=== PATIENT | female | born 1970 | race Caucasian/White ===

== ENCOUNTER → 2016-12-25 | Outpatient (CLI) | payer BC ==
--- NOTE | 2016-12-29 07:07 | MM ---
Reason for exam: screening (asymptomatic). Last mammogram was performed 1 year ago. History: Patient is postmenopausal and has history of other cancer at age 27. Family history of breast cancer in maternal aunt at age 70. Took hormonal contraceptives for 17 years beginning at age 19. Physical Findings: Nurse did not find any significant physical abnormalities on exam. MG Screening Mammo w CAD Bilateral CC and MLO view(s) were taken. Prior study comparison: December 27, 2015, bilateral MG screening mammo w CAD. There are scattered fibroglandular densities. No significant changes when compared with prior studies. ASSESSMENT: Benign, BI-RAD 2 RECOMMENDATION: Routine screening mammogram of both breasts in 1 year.
== END | disposition home or self-care (01) ==
LOC: RADMAMWWP 12:38
PROVIDERS: ATTEND Obstetrics & Gynecology
DX: Z12.31 Encounter for screening mammogram for malignant neoplasm of breast (principal)

== ENCOUNTER → 2017-01-07 | Outpatient (CLI) | payer BC ==
--- NOTE | 2017-01-07 16:14 | ECHOS ---
DATE OF SERVICE: 01/07/2017 AGE: 46Y SEX: F HT: 63" WT: 190 lbs. Protocol [place]: Others: Stress echo Stage: 3 Dur. of Exercise: 9 min *Heart Rate Blood Pressure *Rest: 79 Rest: 109/54 * *Max. Achieved: 159 Maximum BP: 165/70 85% PMHR: 149 100% PMHR: 175 *METS: 10.5 INDICATIONS: Chest pain. MEDICATIONS: Vitamin D, Synthroid. Patient was exercised for a total period of 9 minutes. Peak heart rate of 159 was achieved. Maximum blood pressure of 165/70 mmHg was noted. Resting EKG shows normal sinus rhythm with normal NC interval and QRS duration and nonspecific ST-T changes. During exercise, J-point depression with upsloping ST segments are noted which are not diagnostic of ischemia. The baseline echocardiographic images reveal a normal left ventricular chamber size with normal left ventricular systolic function. In the immediate post-exercise period, normal increase in the wall thickness and contractility is noted. FINAL IMPRESSION: This stress echocardiographic study is negative for stress-induced ischemia. EKG portion of the stress test is not suggestive of ischemia. Patient's exercise tolerance is normal.
== END | disposition home or self-care (01) ==
LOC: RADNMMAIN 09:04
PROVIDERS: ATTEND Family Medicine
DX: R07.89 Other chest pain (principal)
CPT/HCPCS: 93017; 93350

== ENCOUNTER → 2017-02-02 | Outpatient (CLI) | payer BC ==
--- NOTE | 2017-02-02 08:53 | FL ---
EXAMINATION TYPE: FL UGI DATE OF EXAM: 02/02/2017 8:35 AM COMPARISON: NONE HISTORY: Heartburn TECHNIQUE: A double contrast UGI study is performed. FINDINGS: Time Study Engineer image of the abdomen shows no gross abnormality. The esophagus shows normal motility and emptying into the stomach. Tiny sliding hiatal hernia is seen . No gastroesophageal reflux. There is mild fold thickening of the esophagus correlate for esophagiti s. The stomach shows normal distensibility, peristalsis, and mucosal folds. No evidence of any mass or ulcer disease. No significant gastroesophageal reflux was seen during real time performance of this study. The duodenal bulb, sweep, and proximal small bowel loops are unremarkable. IMPRESSION: 1. Mild fold thickening of distal esophagus correlate for mild esophagitis. Consider direct visualiza tion.
== END ==
LOC: RADFLMAIN 07:55
PROVIDERS: ATTEND Family Medicine
DX: R47.02 Dysphasia (principal)
CPT/HCPCS: 74240

== ENCOUNTER → 2017-12-30 | Outpatient (CLI) | payer BC ==
--- NOTE | 2017-12-31 13:22 | MM ---
Reason for exam: screening (asymptomatic). Last mammogram was performed 1 year ago. History: Patient is postmenopausal and has history of other cancer at age 27. Family history of breast cancer in maternal aunt at age 70. Took hormonal contraceptives for 17 years beginning at age 19. Physical Findings: A clinical breast exam by your physician is recommended on an annual basis and results should be correlated with mammographic findings. MG Screening Mammo w CAD Bilateral CC and MLO view(s) were taken. Prior study comparison: December 25, 2016, bilateral MG screening mammo w CAD. December 27, 2015, bilateral MG screening mammo w CAD. The breast tissue is heterogeneously dense. This may lower the sensitivity of mammography. Focal asymmetry upper outer right breast 7.9cm from nipple. This finding is changed when compared with previous exams. ASSESSMENT: Incomplete: need additional imaging evaluation, BI-RAD 0 RECOMMENDATION: Special view mammogram of the right breast. If lesion persists on supplemental views, image directed ultrasound is recommended. [facility] will attempt to contact patient to return for supplemental views and ultrasound if indicated.
== END | disposition home or self-care (01) ==
LOC: RADMAMWWP 11:55
PROVIDERS: ATTEND Obstetrics & Gynecology
DX: Z12.31 Encounter for screening mammogram for malignant neoplasm of breast (principal)
CPT/HCPCS: 77067

== ENCOUNTER → 2018-01-07 | Outpatient (CLI) | payer BC ==
--- NOTE | 2018-01-07 09:54 | MM ---
Reason for exam: additional evaluation requested from abnormal screening. Last mammogram was performed less than 1 month ago. History: Patient is postmenopausal and has history of other cancer at age 27. Family history of breast cancer in maternal aunt at age 70. Took hormonal contraceptives for 17 years beginning at age 19. Physical Findings: Nurse did not find any significant physical abnormalities on exam. MG Work Up Mamm w CAD RT Spot compression CC, spot compression MLO, and LM view(s) were taken of the right breast. Prior study comparison: December 30, 2017, bilateral MG screening mammo w CAD. December 25, 2016, bilateral MG screening mammo w CAD. There are scattered fibroglandular densities. The questioned focal asymmetry disperses on additional views. No significant new findings when compared with previous films. These results were verbally communicated with the patient and result sheet given to the patient on 01/07/18. ASSESSMENT: Negative, BI-RAD 1 RECOMMENDATION: Return to routine screening mammogram schedule for both breasts.
== END | disposition home or self-care (01) ==
LOC: RADMAMWWP 09:04
PROVIDERS: ATTEND Obstetrics & Gynecology
DX: R92.8 Other abnormal and inconclusive findings on diagnostic imaging of breast (principal)
CPT/HCPCS: 77065

== ENCOUNTER → 2019-01-18 | Outpatient (CLI) | payer BC ==
--- NOTE | 2019-01-20 09:36 | MM ---
Reason for exam: screening (asymptomatic). Last mammogram was performed 1 year ago. History: Patient is postmenopausal and has history of other cancer at age 27. Family history of breast cancer in maternal aunt at age 70. Took hormonal contraceptives for 17 years beginning at age 19. Physical Findings: A clinical breast exam by your physician is recommended on an annual basis and results should be correlated with mammographic findings. MG Screening Mammo w CAD Bilateral CC and MLO view(s) were taken. Prior study comparison: January 07, 2018, right breast MG work up mamm w CAD RT. December 30, 2017, bilateral MG screening mammo w CAD. There are scattered fibroglandular densities. No significant changes when compared with prior studies. ASSESSMENT: Benign, BI-RAD 2 RECOMMENDATION: Routine screening mammogram of both breasts in 1 year.
== END | disposition home or self-care (01) ==
LOC: RADMAMWWP 13:52
PROVIDERS: ATTEND Obstetrics & Gynecology
DX: Z12.31 Encounter for screening mammogram for malignant neoplasm of breast (principal)
CPT/HCPCS: 77067

== ENCOUNTER 2019-02-18 08:42 | Day surgery (SDC) | payer BC ==
[2019-02-16 12:37] VITALS: BMI 32.8
[~2019-02-18 08:42] MED LIST: LACTATED RINGERS 1,000 ML IV SCH; LIDOCAINE 1% 20 ML VIAL (10MG/ML) FOR IV START INTRADERMA PRN
[2019-02-18 09:08] VITALS: TEMP 97.6
[2019-02-18] MEDS ORDERED: ONDANSETRON 4 MG/2 ML VIAL IVP ONE (09:20)
[2019-02-18] MEDS ORDERED: SCOPOLAMINE 1.5MG/72HR PATCH TRANSDERM ONE (09:20)
[2019-02-18] MEDS ORDERED: PROPOFOL 10 MG/ML 20 ML VIAL IV ONE (09:46)
[2019-02-18] MEDS ORDERED: fentaNYL (PF) 50 MCG/ML 2 ML AMP ONE (09:46)
[2019-02-18] MEDS ORDERED: MIDAZOLAM 2 MG/2 ML VIAL ONE (09:46)
--- NOTE | 2019-02-18 09:56 | P.PCN ---
Date of Procedure: 02/18/19 Procedure(s) Performed: BRIEF HISTORY: Patient is a 48-year-old, pleasant, white female, scheduled for an upper endoscopy as a part of evaluation of long-standing history of GERD for the last 3 years duration. She also has been complaint of left upper quadrant abdominal pain for the same duration. She is been on Zantac 150 milligrams twice daily with improvement in her heartburn symptoms. However she takes Motrin for the left upper quadrant abdominal pain... PROCEDURE PERFORMED: Esophagogastroduodenoscopy with biopsy. PREOPERATIVE DIAGNOSIS: Long-standing history of GERD. IV sedation per anesthesia. PROCEDURE: After informed consent was obtained, the patient was brought into the endoscopy unit. IV sedation was administered by Anesthesia under continuous monitoring. Initially the Olympus GIF-140 video endoscope was inserted into the mouth. Esophagus intubated without any difficulty. It was gradually advanced into the stomach and duodenum and carefully examined. The bulb and the second part of the duodenum appeared normal. The scope at this time was withdrawn to the stomach, adequately insufflated with air, and upon careful examination, mucosa of the antrum, body, cardia and the fundus appeared normal. The scope was then withdrawn into the esophagus. The GE junction was located at 39 cm from the incisors. There was a small hiatal hernia noted. The mucosal folds in the mid and distal esophagus appeared thickened, with longitudinal ridges and furrows suspicious for eosinophilic esophagitis and multiple biopsies were done from this area. The rest of the esophagus appeared normal thee patient tolerated the procedure well. IMPRESSION: 1. Mild antral gastritis. 2. Small hiatal hernia. 3. Thickened esophageal folds involving the mid and distal esophagus with longitudinal ridges and follow suspicious for eosinophilic esophagitis status post multiple biopsies. RECOMMENDATIONS: The findings of this examination were discussed with the patient as well as a family. She was advised to follow with the biopsy results. She'll be seen in office in one to 2 weeks. In the meantime she'll continue with Zantac 150 milligrams twice daily and follow antireflux measures.
[2019-02-18 10:03] VITALS: RESP 16
[2019-02-18 10:27] VITALS: BP 115/78; PULSE 69
== END 2019-02-18 10:27 | disposition home or self-care (01) ==
LOC: ORWHC2ENDO 08:42
PROVIDERS: ATTEND Internal Medicine Gastroenterology
DX: K29.50 Unspecified chronic gastritis without bleeding (principal); K20.0 Eosinophilic esophagitis; K21.9 Gastro-esophageal reflux disease without esophagitis; K44.9 Diaphragmatic hernia without obstruction or gangrene; E07.9 Disorder of thyroid, unspecified; Z79.899 Other long term (current) drug therapy; Z88.5 Allergy status to narcotic agent; Z79.890 Hormone replacement therapy
CPT/HCPCS: 88305; 43239; J2250; J2405; J3010; J2704

== ENCOUNTER 2019-07-22 06:58 | Day surgery (SDC) | payer BC ==
[2019-07-20 13:03] VITALS: BMI 32.8
[2019-07-22 07:14] VITALS: TEMP 97.4
[2019-07-22] MEDS ORDERED: LIDOCAINE 2% SYG (PF) 100 MG/5 ML MISCELLANE ONE (07:21)
[2019-07-22] MEDS ORDERED: LACTATED RINGERS 1,000 ML IV ONE ×2 (07:22)
[2019-07-22] MEDS ORDERED: PROPOFOL 10 MG/ML 20 ML VIAL IV ONE (07:31)
--- NOTE | 2019-07-22 07:47 | P.PCN ---
Date of Procedure: 07/22/19 Procedure(s) Performed: BRIEF HISTORY: Patient is a 49-year-old pleasant female, scheduled for an elective colonoscopy as a part of evaluation of intermittent rectal bleeding for the last 2 months duration. PROCEDURE PERFORMED: Colonoscopy. PREOPERATIVE DIAGNOSIS: Intermittent rectal bleeding. IV sedation per Anesthesia. PROCEDURE: After informed consent was obtained, the patient, was brought into the endoscopy unit. IV sedation was administered by Anesthesia under continuous monitoring. Digital rectal examination was normal. Initially the Olympus CF-160 flexible video colonoscope was then inserted in the rectum, gradually advanced into the cecum without any difficulty. Careful examination was performed as the scope was gradually being withdrawn. Ileocecal valve and the appendiceal orifice were visualized and appeared normal. Prep was excellent. Mucosa of the cecum, ascending colon, transverse colon, descending colon, sigmoid colon, and rectum appeared normal. Retroflexion was performed in the rectum and small internal hemorrhoids were seen. The patient tolerated the procedure well. IMPRESSION: Normal-appearing colon from rectum to cecum with no evidence of colorectal neoplasia . Small internal hemorrhoids. RECOMMENDATIONS: Findings of this examination were discussed with the patient as well as her family. She was advised to be a high-fiber diet and take fiber supplements a regular basis. She can have a repeat screening colonoscopy in 10 years.
[2019-07-22 08:00] VITALS: RESP 16
[2019-07-22 08:05] VITALS: BP 128/87; PULSE 66
== END 2019-07-22 08:26 | disposition home or self-care (01) ==
LOC: ORWHC2ENDO 06:58
PROVIDERS: ATTEND Internal Medicine Gastroenterology
DX: K62.5 Hemorrhage of anus and rectum (principal); K64.8 Other hemorrhoids; K21.9 Gastro-esophageal reflux disease without esophagitis; E07.9 Disorder of thyroid, unspecified; Z79.890 Hormone replacement therapy; Z79.899 Other long term (current) drug therapy
CPT/HCPCS: 45378; J2001; J2704

== ENCOUNTER → 2020-07-17 | Outpatient (CLI) | payer BC ==
--- NOTE | 2020-07-18 11:37 | MM ---
Reason for exam: screening (asymptomatic). Last mammogram was performed 1 year and 6 months ago. History: Patient is postmenopausal and has history of other cancer at age 27. Family history of breast cancer in maternal aunt at age 70. Took hormonal contraceptives for 17 years beginning at age 19. Physical Findings: A clinical breast exam by your physician is recommended on an annual basis and results should be correlated with mammographic findings. MG Screening Mammo w CAD Bilateral CC and MLO view(s) were taken. Prior study comparison: January 18, 2019, bilateral MG screening mammo w CAD. January 07, 2018, right breast MG work up mamm w CAD RT. The breast tissue is heterogeneously dense. This may lower the sensitivity of mammography. Asymmetric breast tissue lateral right breast. This finding is changed when compared with previous exams. ASSESSMENT: Incomplete: need additional imaging evaluation, BI-RAD 0 RECOMMENDATION: Special view mammogram of the right breast. If lesion persists on supplemental views, image directed ultrasound is recommended. [facility] will attempt to contact patient to return for supplemental views and ultrasound if indicated.
== END | disposition home or self-care (01) ==
LOC: RADMAMWWP 13:15
PROVIDERS: ATTEND Obstetrics & Gynecology
DX: Z12.31 Encounter for screening mammogram for malignant neoplasm of breast (principal)
CPT/HCPCS: 77067

== ENCOUNTER → 2020-08-17 | Outpatient (CLI) | payer BC ==
--- NOTE | 2020-08-17 14:15 | MM ---
Reason for exam: additional evaluation requested from abnormal screening. Last mammogram was performed 1 month ago. History: Patient is postmenopausal and has history of other cancer at age 27. Family history of breast cancer in maternal aunt at age 70. Took hormonal contraceptives for 17 years beginning at age 19. Physical Findings: Nurse did not find any significant physical abnormalities on exam. MG Work Up Mamm w CAD RT CC view(s) were taken of the right breast. Prior study comparison: July 17, 2020, bilateral MG screening mammo w CAD. January 18, 2019, bilateral MG screening mammo w CAD. There is no discrete abnormality including area of concern. These results were verbally communicated with the patient and result sheet given to the patient on 08/17/20. ASSESSMENT: Negative, BI-RAD 1 RECOMMENDATION: Return to routine screening mammogram schedule for both breasts.
== END | disposition home or self-care (01) ==
LOC: RADMAMWWP 13:27
PROVIDERS: ATTEND Obstetrics & Gynecology
DX: R92.8 Other abnormal and inconclusive findings on diagnostic imaging of breast (principal)
CPT/HCPCS: 77065

== ENCOUNTER → 2020-10-26 | Outpatient (CLI) | payer BC | END | disposition home or self-care (01) | LOC: LABPAT 13:22 | PROVIDERS: ATTEND Surgery | DX: Z01.818 Encounter for other preprocedural examination (principal) | CPT/HCPCS: U0003; C9803 ==

== ENCOUNTER 2020-10-29 07:53 | Day surgery (SDC) | payer BC ==
[2020-10-26 14:05] VITALS: BMI 31.6
[~2020-10-29 07:53] MED LIST changes: +HYDROmorphone 0.5 MG/0.5 ML SYRINGE IVP PRN; +LIDOCAINE 1% (10MG/ML) FOR IV START INTRADERMA PRN; -LIDOCAINE 1% 20 ML VIAL (10MG/ML) FOR IV START INTRADERMA PRN
--- NOTE | 2020-10-29 07:55 | P.HPADDEND ---
H&P Addendum H&P Addendum Date: 10/29/20 Please refer to recent H&P from 2 weeks ago. Patient contacted my office after speaking with the [facility] [place]. Her appointment with [facility] is in early November. They are requesting that a deltoid muscle biopsy be performed prior to her arrival. Patient and I discussed by phone. We have scheduled her for left deltoid biopsy today. Risks of bleeding, infection, weakness, numbness, nerve injury, inadequate specimen or issues related to specimen transfer discussed with her. She understands and wishes to proceed.
[2020-10-29] MEDS ORDERED: Pre Op ABX Message 1 EACH MISC MISCELLANE ONE (08:00)
[2020-10-29] MEDS ORDERED: HEPARIN SODIUM,PORCINE 5,000 UNIT/ML 1 ML VIAL SQ PRN (08:00)
[2020-10-29] MEDS ORDERED: ACETAMINOPHEN TAB 500 MG TAB PO PRN (08:00)
[2020-10-29] MEDS ORDERED: ONDANSETRON 4 MG/2 ML VIAL ONE (08:39)
[2020-10-29] MEDS ORDERED: ONDANSETRON 4 MG/2 ML VIAL IVP ONE (08:46)
[2020-10-29] MEDS ORDERED: DEXAMETHASONE SOD PHOSPHATE 4 MG/ML 1 ML VIAL IVP ONE (08:46)
[2020-10-29] MEDS ORDERED: SCOPOLAMINE 1.5MG/72HR PATCH TRANSDERM ONE (08:53)
[2020-10-29] MEDS ORDERED: MIDAZOLAM 2 MG/2 ML VIAL ONE (09:10)
[2020-10-29] MEDS ORDERED: PROPOFOL 10 MG/ML 20 ML VIAL IV ONE (09:10)
[2020-10-29] MEDS ORDERED: fentaNYL (PF) 50 MCG/ML 2 ML AMP ONE (09:10)
[2020-10-29] MEDS ORDERED: LIDOCAINE 1% INJ 10MG/ML (20 ML MDV) ONE (09:10)
[2020-10-29] MEDS ORDERED: BUPIVACAINE (PF) 0.25% 30 ML VIAL SQ ONE ×2 (09:31→09:48)
[2020-10-29] MEDS ORDERED: HYDROcodone/APAP 5-325MG 1 EACH TAB PO PRN (09:54)
[2020-10-29] MEDS ORDERED: NALOXONE 0.4 MG/ML 1 ML VIAL IV PRN (09:54)
--- NOTE | 2020-10-29 09:57 | P.OP ---
Date of Procedure: 10/29/20 Procedure(s) Performed: PREOPERATIVE DIAGNOSIS: Myositis POSTOPERATIVE DIAGNOSIS: Same PROCEDURE: Left deltoid muscle biopsy SURGEON: aJmal EBL: 10 mL ANESTHESIA: Gen. COMPLICATIONS: None OPERATIVE PROCEDURE: Patient place in the operating table in the supine position. The patient was placed under general anesthesia. A longitudinal incision was made overlying the mid deltoid region. Dissection through the subcutaneous tissues took place using electrocautery. 3 samples of muscle were then removed. First measuring 1-1.5 cm second measuring just under 1 cm third measuring 5 mm. These were sent to [facility] per their protocol. Site was inspected. No bleeding was seen. Fascia was reapproximated using 3-0 Vicryl sutures. Subcutaneous tissues closed using 3-0 Vicryl sutures. Skin then closed using a running 4-0 Monocryl suture. Skin glue and sterile dressings applied. DISPOSITION: Stable to recovery room
[2020-10-29 10:02] VITALS: TEMP 98
[2020-10-29] MEDS ORDERED: LACTATED RINGERS 1,000 ML IV ONE (11:04)
[2020-10-29 11:11] VITALS: RESP 18
[2020-10-29 11:25] VITALS: BP 127/67; PULSE 67
== END 2020-10-29 11:52 | disposition home or self-care (01) ==
LOC: OR 07:53
PROVIDERS: ATTEND Surgery
DX: M60.9 Myositis, unspecified (principal); R21 Rash and other nonspecific skin eruption; E07.9 Disorder of thyroid, unspecified; K21.9 Gastro-esophageal reflux disease without esophagitis; Z88.5 Allergy status to narcotic agent; Z88.4 Allergy status to anesthetic agent; Z79.890 Hormone replacement therapy; Z79.899 Other long term (current) drug therapy; Z79.52 Long term (current) use of systemic steroids; Z90.710 Acquired absence of both cervix and uterus; Z86.69 Personal history of other diseases of the nervous system and sense organs; Z91.89 Other specified personal risk factors, not elsewhere classified; Z80.7 Family history of other malignant neoplasms of lymphoid, hematopoietic and related tissues
CPT/HCPCS: 20205; J2250; J1644; J1100; J0690; J2405; J2001; J3010; J2704; J1170

== ENCOUNTER → 2020-12-25 | Outpatient (CLI) | payer BC ==
--- NOTE | 2020-12-25 10:04 | US ---
EXAMINATION TYPE: US transvaginal DATE OF EXAM: 12/25/2020 COMPARISON: NONE CLINICAL HISTORY: N83.20 PREVIOUS OVARIAN CYST LT. No history of endometriosis. 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 TECHNIQUE: Transvaginal (TV). Date of LMP: hysterectomy EXAM MEASUREMENTS: Uterus: Surgically absent Endometrial Stripe: Surgically absent Right Ovary: 2.4 x 1.5 x 1.5 cm Left Ovary: 6.6 x 3.7 x 4.5 cm 1. Uterus: Surgically absent 2. Endometrium: Surgically absent 3. Right Ovary: wnl 4. Left Ovary: multiple probable chocolate cysts largest measuring 3.6 x 4.1 x 2.7cm, and 3.4 x 3.0 x 3.2, no normal appearing ovarian tissue 5. Bilateral Adnexa: wnl 6. Posterior cul-de-sac: wnl Uterus is surgically absent. No free fluid in pelvic cul-de-sac. Right ovary unremarkable. Left ovary has 2 adjacent round to oval cystic lesions with homogeneous low-level echoes without vascularity. N o suspicious extra ovarian adnexal lesions. IMPRESSION: 2 nonsimple cyst left ovary suspected probable endometriomas. Almost certainly benign. O- RADS 2 Recommendation: If not surgically excised, follow-up ultrasound in one year time is advised.
== END | disposition home or self-care (01) ==
LOC: RADUSWWP 09:02
PROVIDERS: ATTEND Obstetrics & Gynecology
DX: N83.202 Unspecified ovarian cyst, left side (principal)
CPT/HCPCS: 76830

== ENCOUNTER → 2021-03-27 | Outpatient (CLI) | payer BC ==
--- NOTE | 2021-03-29 04:34 | NM ---
EXAMINATION TYPE: NM thyroid image w uptake DATE OF EXAM: 03/28/2021 COMPARISON: NONE HISTORY: Hyperthyroidism TECHNIQUE: Thyroid iodine uptake is calculated and images performed after the oral administration of 324 uCi 1-123 Capsule. FINDINGS: There is normal distribution of activity throughout the gland. The 4 hour iodine uptake is calculated at 13.7% (normal range 8-14%). The 24-hour iodine uptake is calculated at 34.2% (normal r charles 15-35%). I see no definite focal thyroid abnormality. The right lobe is slightly larger than the left. IMPRESSION: No definite thyroid mass. The iodine uptake is normal. No evidence of hyperthyroidism.
== END | disposition home or self-care (01) ==
LOC: RADNMMAIN 08:35
PROVIDERS: ATTEND Internal Medicine Endocrinology, Diabetes & Metabolism
DX: Z03.89 Encounter for observation for other suspected diseases and conditions ruled out (principal)
CPT/HCPCS: 78014; A9516

== ENCOUNTER → 2021-08-09 | Outpatient (CLI) | payer BC ==
[2021-08-10 00:21] LABS: T4, Free (Free Thyroxine) 0.9 ng/dL (0.80-1.80)
== END | disposition home or self-care (01) ==
LOC: LABWHC1 14:29
PROVIDERS: ATTEND Internal Medicine Endocrinology, Diabetes & Metabolism
DX: E05.90 Thyrotoxicosis, unspecified without thyrotoxic crisis or storm (principal)
CPT/HCPCS: 36415; 84439; 84443; 84480

== ENCOUNTER → 2021-09-02 | Outpatient (CLI) | payer BC ==
--- NOTE | 2021-09-04 08:04 | MM ---
Reason for exam: screening (asymptomatic). Last mammogram was performed 1 year and 1 month ago. History: Patient is postmenopausal and has history of other cancer at age 27. Family history of breast cancer in maternal aunt at age 70. Took hormonal contraceptives for 17 years beginning at age 19. Physical Findings: A clinical breast exam by your physician is recommended on an annual basis and results should be correlated with mammographic findings. MG Screening Mammo w CAD Bilateral CC and MLO view(s) were taken. Prior study comparison: July 17, 2020, bilateral MG screening mammo w CAD. January 18, 2019, bilateral MG screening mammo w CAD. There are scattered fibroglandular densities. No significant changes when compared with prior studies. ASSESSMENT: Negative, BI-RAD 1 RECOMMENDATION: Routine screening mammogram of both breasts in 1 year.
== END | disposition home or self-care (01) ==
LOC: RADMAMWWP 16:30
PROVIDERS: ATTEND Obstetrics & Gynecology
DX: Z12.31 Encounter for screening mammogram for malignant neoplasm of breast (principal)
CPT/HCPCS: 77067

== ENCOUNTER → 2021-10-11 | Outpatient (CLI) | payer BC ==
[2021-10-11 20:40] LABS: T4, Free (Free Thyroxine) 0.87 ng/dL (0.800-1.800)
== END | disposition home or self-care (01) ==
LOC: LABWHC1 12:14
PROVIDERS: ATTEND Internal Medicine Endocrinology, Diabetes & Metabolism
DX: E05.90 Thyrotoxicosis, unspecified without thyrotoxic crisis or storm (principal)
CPT/HCPCS: 36415; 84439; 84443; 84445; 84481

== ENCOUNTER → 2022-01-11 | Outpatient (CLI) | payer BC ==
[2022-01-11 17:26] LABS: T4, Free (Free Thyroxine) 0.77 ng/dL (0.800-1.800)
== END | disposition home or self-care (01) ==
LOC: LABWHC1 11:54
PROVIDERS: ATTEND Internal Medicine Endocrinology, Diabetes & Metabolism
DX: E05.90 Thyrotoxicosis, unspecified without thyrotoxic crisis or storm (principal)
CPT/HCPCS: 36415; 84439; 84443; 84445; 84480

== ENCOUNTER → 2022-09-03 | Outpatient (CLI) | payer BC ==
--- NOTE | 2022-09-04 08:16 | MM ---
Reason for Exam: Screening (asymptomatic). Last screening mammogram was performed 12 month(s) ago. Patient History: Menarche at age 12. First Full-Term at age 24. Left ovary removed at age 51. Hysterectomy at age 45. Patient has history of breast feeding. Hormonal Contraceptives, starting at age 19 for 17 years. Maternal aunt had breast cancer, age 70. Risk Values: Harriet 5 year model risk: 1.0%. NCI Lifetime model risk: 8.7%. Prior Study Comparison: 07/17/2020 Bilateral Screening Mammogram, [facility]. 08/17/2020 Right Diagnostic Mammogram, [facility]. 09/02/2021 Bilateral Screening Mammogram, [facility]. Tissue Density: There are scattered fibroglandular densities. Findings: Analyzed By CAD. There is no suspicious group of microcalcifications in either breast. Asymmetry demonstrated within the inner right breast on the CC view only. This is a posterior depth approximately 8.5 cm from the nipple. Overall Assessment: Incomplete: need additional imaging evaluation, BI-RAD 0 Management: Diagnostic Mammogram of the right breast. A clinical breast exam by your physician is recommended on an annual basis and results should be correlated with mammographic findings. [facility] will attempt to contact patient to return for supplemental views and ultrasound if indicated. Electronically signed and approved by: Lui Paniagua D.O.
== END | disposition home or self-care (01) ==
LOC: RADMAMWWP 11:21
PROVIDERS: ATTEND Obstetrics & Gynecology
DX: Z12.31 Encounter for screening mammogram for malignant neoplasm of breast (principal); Z80.3 Family history of malignant neoplasm of breast
CPT/HCPCS: 77067

== ENCOUNTER → 2022-09-09 | Outpatient (CLI) | payer BC ==
--- NOTE | 2022-09-09 11:33 | MM ---
Reason for Exam: Additional evaluation requested from abnormal screening. Last screening mammogram was performed less than 1 month ago. Patient History: Menarche at age 12. First Full-Term at age 24. Left ovary removed at age 51. Hysterectomy at age 45. Patient has history of breast feeding. Hormonal Contraceptives, starting at age 19 for 17 years. Maternal aunt had breast cancer, age 70. Risk Values: Harriet 5 year model risk: 1.0%. NCI Lifetime model risk: 8.7%. Prior Study Comparison: 08/17/2020 Right Diagnostic Mammogram, [facility]. 09/02/2021 Bilateral Screening Mammogram, [facility]. 09/03/2022 Bilateral MG screening mammo w CAD, [facility]. Tissue Density: Right: There are scattered fibroglandular densities. Findings: Analyzed By CAD. Asymmetry persists on the compression view in the posterior aspect of the inner right breast on the CC view. Overall Assessment: Incomplete: need additional imaging evaluation, BI-RAD 0 Management: Diagnostic Breast Ultrasound of the right breast. A clinical breast exam by your physician is recommended on an annual basis and results should be correlated with mammographic findings. This exam should not preclude additional follow-up of suspicious palpable abnormalities. Results were given to the patient verbally at the time of exam. Electronically signed and approved by: Lui Paniagua D.O.
--- NOTE | 2022-09-09 11:47 | USB ---
Reason for Exam: Additional evaluation requested from abnormal screening. Patient History: Menarche at age 12. First Full-Term at age 24. Left ovary removed at age 51. Hysterectomy at age 45. Patient has history of breast feeding. Hormonal Contraceptives, starting at age 19 for 17 years. Maternal aunt had breast cancer, age 70. Risk Values: Harriet 5 year model risk: 1.0%. NCI Lifetime model risk: 8.7%. Technique: Method: Targeted. Prior Study Comparison: 08/17/2020 Right Diagnostic Mammogram, [facility]. 09/02/2021 Bilateral Screening Mammogram, [facility]. 09/03/2022 Bilateral MG screening mammo w CAD, [facility]. Findings: The medial section of the breast of the right breast, the axilla of the right breast and the retroareolar of the right breast were scanned. Targeted ultrasound of the right breast from 12-6 o'clock was performed with additional evaluation of the nipple and axilla. No solid or cystic masses identified. Overall Assessment: Probably benign, BI-RAD 3 Management: Diagnostic Mammogram of the right breast in 6 months. A clinical breast exam by your physician is recommended on an annual basis and results should be correlated with mammographic findings. This exam should not preclude additional follow-up of suspicious palpable abnormalities. ??Results were given to the patient verbally at the time of exam. Electronically signed and approved by: Lui Paniagua D.O.
== END | disposition home or self-care (01) ==
LOC: RADMAMWWP 11:01
PROVIDERS: ATTEND Obstetrics & Gynecology
DX: R92.8 Other abnormal and inconclusive findings on diagnostic imaging of breast (principal)
CPT/HCPCS: 77065

== ENCOUNTER → 2023-04-27 | Outpatient (CLI) | payer BC ==
--- NOTE | 2023-04-27 13:21 | MM ---
Reason for Exam: Follow-up at short interval from prior study. Last screening mammogram was performed 8 month(s) ago. Patient History: Menarche at age 12. First Full-Term at age 24. Left ovary removed at age 51. Hysterectomy at age 45. Perimenopausal. Patient has history of breast feeding. Hormonal Contraceptives, starting at age 19 for 17 years. Risk Values: Harriet 5 year model risk: 1.0%. NCI Lifetime model risk: 8.5%. Prior Study Comparison: 09/02/2021 Bilateral Screening Mammogram, [facility]. 09/03/2022 Bilateral MG screening mammo w CAD, [facility]. 09/09/2022 Right MG work up mamm w CAD RT, [facility]. Tissue Density: Right: There are scattered fibroglandular densities. Findings: Analyzed By CAD. Asymmetric density inner right breast approximately 8.5 cm from the nipple persists although is less conspicuous on the current study. Continued follow-up is advised in 6 months. Overall Assessment: Probably benign, BI-RAD 3 Management: Diagnostic Mammogram of both breasts in 6 months. . Results were given to the patient verbally at the time of exam. Patient should continue monthly self-breast exams. A clinical breast exam by your physician is recommended on an annual basis. This exam should not preclude additional follow-up of suspicious palpable abnormalities. Note on Harriet scores and lifetime risk: 1. A Harriet score greater than 3% is considered moderate risk. If this is the case, consider specialist referral to assess eligibility for a risk reducing agent. 2. If overall lifetime risk for the development of breast cancer is 20% or higher, the patient may qualify for future screening with alternating mammogram and breast MRI. Electronically signed and approved by: Omari Quinonez M.D. Radiologis
== END | disposition home or self-care (01) ==
LOC: RADMAMWWP 12:51
PROVIDERS: ATTEND Obstetrics & Gynecology
DX: R92.8 Other abnormal and inconclusive findings on diagnostic imaging of breast (principal)
CPT/HCPCS: 77061; 77065

== ENCOUNTER → 2023-11-06 | Outpatient (CLI) | payer BC ==
--- NOTE | 2023-11-06 11:16 | MM ---
Reason for Exam: Additional evaluation requested from prior study. Last mammogram was performed 1 year(s) and 2 month(s) ago. Patient History: Menarche at age 12. First Full-Term at age 24. Left ovary removed at age 51. Hysterectomy at age 45. Perimenopausal. Patient has history of breast feeding. Hormonal Contraceptives, starting at age 19 for 17 years. Risk Values: Harriet 5 year model risk: 1.0%. NCI Lifetime model risk: 8.5%. Prior Study Comparison: 12/26/2014 Bilateral Screening Mammogram, [facility]. 12/27/2015 Bilateral Screening Mammogram, [facility]. 12/25/2016 Bilateral Screening Mammogram, [facility]. 12/30/2017 Bilateral Screening Mammogram, [facility]. 01/07/2018 Right Diagnostic Mammogram, [facility]. 01/18/2019 Bilateral Screening Mammogram, [facility]. 07/17/2020 Bilateral Screening Mammogram, [facility]. 08/17/2020 Right Diagnostic Mammogram, [facility]. 09/02/2021 Bilateral Screening Mammogram, [facility]. 09/03/2022 Bilateral MG screening mammo w CAD, [facility]. 09/09/2022 Right US breast workup limited RT, [facility]. 09/09/2022 Right MG work up mamm w CAD RT, [facility]. 04/27/2023 Right MG 3D diag mammo w/cad RT, [facility]. Tissue Density: There are scattered fibroglandular densities. Findings: Analyzed By CAD. Asymmetric density inner posterior right cc view remains unchanged for a year. Additional follow-up at the patient's next annual study is recommended. No other significant change is seen. Overall Assessment: Probably benign, BI-RAD 3 Management: Diagnostic Mammogram of both breasts in 1 year. For a total 2 year follow-up right breast and annual exam of the left breast. Results were given to the patient verbally at the time of exam. Patient should continue monthly self-breast exams. A clinical breast exam by your physician is recommended on an annual basis. This exam should not preclude additional follow-up of suspicious palpable abnormalities. Note on Harriet scores and lifetime risk: 1. A Hariret score greater than 3% is considered moderate risk. If this is the case, consider specialist referral to assess eligibility for a risk reducing agent. 2. If overall lifetime risk for the development of breast cancer is 20% or higher, the patient may qualify for future screening with alternating mammogram and breast MRI. Electronically signed and approved by: Mary Christie M.D. Radiologist
== END | disposition home or self-care (01) ==
LOC: RADMAMWWP 10:49
PROVIDERS: ATTEND Family Medicine
DX: R92.323 Mammographic fibroglandular density, bilateral breasts (principal)
CPT/HCPCS: 77062; 77066

== ENCOUNTER → 2024-11-01 | Outpatient (CLI) | payer BC ==
--- NOTE | 2024-11-01 13:20 | MM ---
Reason for Exam: Follow-up at short interval from prior study. Last screening mammogram was performed 12 month(s) ago. Patient History: Menarche at age 12. First Full-Term at age 24. Left ovary removed at age 51. Hysterectomy at age 45. Perimenopausal. Patient has history of breast feeding. Hormonal Contraceptives, starting at age 19 for 17 years. Risk Values: Harriet 5 year model risk: 1.1%. NCI Lifetime model risk: 8.4%. Tissue Density: There are scattered areas of fibroglandular density. Findings: Analyzed By CAD. Asymmetric density inner posterior right breast is unchanged dating back to 2021. No evidence for breast nodule or mass. No suspicious microcalcifications. Overall Assessment: Benign, BI-RAD 2 Management: Screening Mammogram of both breasts in 1 year. . Results were given to the patient verbally at the time of exam. Patient should continue monthly self-breast exams. A clinical breast exam by your physician is recommended on an annual basis. This exam should not preclude additional follow-up of suspicious palpable abnormalities. Note on Harriet scores and lifetime risk: 1. A Harriet score greater than 3% is considered moderate risk. If this is the case, consider specialist referral to assess eligibility for a risk reducing agent. 2. If overall lifetime risk for the development of breast cancer is 20% or higher, the patient may qualify for future screening with alternating mammogram and breast MRI. [facility], , 11/01/2024 1:17 PM. Electronically signed and approved by: Omari Quinonez M.D. Radiologis
== END | disposition home or self-care (01) ==
LOC: RADMAMWWP 12:49
PROVIDERS: ATTEND Family Medicine
DX: R92.8 Other abnormal and inconclusive findings on diagnostic imaging of breast (principal); R92.323 Mammographic fibroglandular density, bilateral breasts
CPT/HCPCS: 77062; 77066

== ENCOUNTER → 2024-11-01 | Outpatient (CLI) | payer BC ==
--- NOTE | 2024-11-01 17:03 | CA ---
Transthoracic Echo Report Name: Sakshi Reyes Age: 54 Gender: F : 1970 Exam Date: 11/01/2024 13:44 Exam Location: [place] [facility] Ht (in): 63 Wt (lb): 194 Ordering Physician: Akilah Rowan MD Attending/Referring Phys: Laboratory Scientist Chuyita Encinas RDCS Procedure CPT: Indications: M79.89 LEG SWELLING R07.9 CHEST PAIN Cardiac Hx: Technical Quality: Good Contrast 1: Total Dose (mL): Contrast 2: Total Dose (mL): MEASUREMENTS (Male / Female) Normal Values 2D ECHO LV Diastolic Diameter PLAX 4.8 cm 4.2 - 5.9 / 3.9 - 5.3 cm LV Systolic Diameter PLAX 3.6 cm IVS Diastolic Thickness 1.0 cm 0.6 - 1.0 / 0.6 - 0.9 cm LVPW Diastolic Thickness 1.0 cm 0.6 - 1.0 / 0.6 - 0.9 cm LV Relative Wall Thickness 0.4 RV Internal Dim ED PLAX 3.2 cm LA Systolic Diameter LX 3.6 cm 3.0 - 4.0 / 2.7 - 3.8 cm LV Diastolic Volume MOD 4C 90.6 cm??? LV Systolic Volume MOD 4C 49.2 cm??? LV Ejection Fraction MOD 4C 45.6 % LV Cardiac Index MOD 4C 1435.8 cm???/min???m??? LV Diastolic Length 4C 7.7 cm LV Systolic Length 4C 6.4 cm LV Diastolic Volume MOD 2C 86.1 cm??? LV Systolic Volume MOD 2C 41.9 cm??? LV Ejection Fraction MOD 2C 51.3 % LV Cardiac Index MOD 2C 1533.5 cm???/min???m??? LV Diastolic Length 2C 7.2 cm LV Systolic Length 2C 5.9 cm M-MODE Aortic Root Diameter MM 2.6 cm LA Systolic Diameter MM 1.9 cm LA Ao Ratio MM 0.7 DOPPLER AV Peak Velocity 132.6 cm/s AV Peak Gradient 7.0 mmHg Mitral E Point Velocity 83.1 cm/s Mitral A Point Velocity 81.5 cm/s Mitral E to A Ratio 1.0 MV Deceleration Time 161.7 ms TR Peak Velocity 226.8 cm/s TR Peak Gradient 20.6 mmHg Right Ventricular Systolic Press 30.6 mmHg FINDINGS Left Ventricle Left ventricular ejection fraction is estimated at 50-55 %. Left ventricular cavity size normal. Left ventricular wall thickness normal. Right Ventricle Normal right ventricular size and function. Right ventricular systolic pressure within normal limits. Right Atrium Normal right atrial size. No right atrial thrombus or mass seen. Left Atrium Normal left atrial size. No left atrial thrombus or mass present. Mitral Valve Structurally normal mitral valve. Trace to mild mitral regurgitation. Aortic Valve Trileaflet aortic valve. No aortic valve stenosis or regurgitation. Tricuspid Valve Structurally normal tricuspid valve. Mild tricuspid regurgitation. Pulmonic Valve Structurally normal pulmonic valve. No pulmonic regurgitation. Pericardium No pericardial or pleural effusion. Aorta Normal size aortic root and proximal ascending aorta. CONCLUSIONS Normal LV function Previewed by: Dr. Michael Zarate MD (Electronically Signed) Final Date: 01 November 2024 17:02
== END | disposition home or self-care (01) ==
LOC: RADECHMAIN 13:24
PROVIDERS: ATTEND Internal Medicine
DX: M79.89 Other specified soft tissue disorders (principal); I07.1 Rheumatic tricuspid insufficiency; I34.0 Nonrheumatic mitral (valve) insufficiency
CPT/HCPCS: 93306

== ENCOUNTER 2024-12-09 11:04 | Day surgery (SDC) | payer BC ==
[2024-12-08 08:55] VITALS: BMI 33.6
[~2024-12-09 11:04] MED LIST changes: -HYDROmorphone 0.5 MG/0.5 ML SYRINGE IVP PRN; -LIDOCAINE 1% (10MG/ML) FOR IV START INTRADERMA PRN
[2024-12-09] MEDS: IV FLUID CONTINUATION 1,000 ML IV ONE (12:42)
[2024-12-09 12:48] VITALS: TEMP 97.4
[2024-12-09] MEDS ORDERED: ONDANSETRON 4 MG/2 ML VIAL ONE (13:21)
[2024-12-09] MEDS ORDERED: PROPOFOL 10 MG/ML 20 ML VIAL IV ONE (13:21)
[2024-12-09] MEDS ORDERED: LIDOCAINE 1% INJ 10MG/ML (20 ML MDV) ONE (13:21)
--- NOTE | 2024-12-09 13:37 | P.PCN ---
Date of Procedure: 12/09/24 Procedure(s) Performed: BRIEF HISTORY: Patient is a 54-year-old, pleasant, white female scheduled for an upper endoscopy as a part of evaluation of intermittent dysphagia to solids. She was diagnosed with eosinophilic esophagitis in 2019 and has been on omeprazole 20 mg daily as well as following her 6 recommendation diet. Because of worsening symptoms she is An upper endoscopy to evaluate for. PROCEDURE PERFORMED: Esophagogastroduodenoscopy with biopsy. PREOPERATIVE DIAGNOSIS: Intermittent dysphagia to solids/history of eosinophilic esophagitis. IV sedation per anesthesia. PROCEDURE: After informed consent was obtained, the patient was brought into the endoscopy unit. IV sedation was administered by Anesthesia under continuous monitoring. Initially the Olympus GIF-140 video endoscope was inserted into the mouth. Esophagus intubated without any difficulty. It was gradually advanced int o the stomach and duodenum and carefully examined. The bulb and the second part of the duodenum appeared normal. The scope at this time was withdrawn to the stomach, adequately insufflated with air, and upon careful examination, mucosa of the antrum, body, cardia and the fundus appeared normal. The scope was then withdrawn into the esophagus. Mild hiatal hernia noted. The GE junction was located at 39 cm from the incisors. The esophagus appeared normal. There were no erosions or ulcerations seen. No evidence of esophageal stricture. Multiple biopsies were done from the mid and distal esophagus to evaluate for eosinophilic esophagitis and the patient tolerated the procedure well. IMPRESSION: 1. Small hiatal hernia. 2. Normal-appearing esophagus with no evidence of esophagitis or esophageal thickening s/p multiple biopsies in the mid and distal esophagus to evaluate for eosinophilic esophagitis. RECOMMENDATIONS: The findings of this examination were discussed with the patient as well as her family. She was advised to follow-up with the biopsy results. In the meantime continue with omeprazole 20 mg daily and continue to follow 6 food illumination diet..
[2024-12-09 14:05] VITALS: BP 141/84; PULSE 69; RESP 18
== END 2024-12-09 14:05 | disposition home or self-care (01) ==
LOC: ORWHC2ENDO 11:04
PROVIDERS: ATTEND Internal Medicine Gastroenterology
DX: K21.00 Gastro-esophageal reflux disease with esophagitis, without bleeding (principal); K44.9 Diaphragmatic hernia without obstruction or gangrene; I10 Essential (primary) hypertension; E03.9 Hypothyroidism, unspecified; G43.909 Migraine, unspecified, not intractable, without status migrainosus; Z79.899 Other long term (current) drug therapy; Z79.890 Hormone replacement therapy; Z88.5 Allergy status to narcotic agent
CPT/HCPCS: 88305; 43239; J2405; J2003; J2704